=== PATIENT | female | born 1975 | race Caucasian/White ===

== ENCOUNTER 2019-03-13 11:54 | Observation (INO) | payer OTHER ==
[~2019-03-13] VITALS: Ht 152.4 cm; Wt 118.4 kg
[2019-03-13 12:30] VITALS: BP 133/75
[2019-03-13 13:05] LABS: BASOPHILS % (AUTO) 0.4 % (0.0-2.0); EOSINOPHILS % (AUTO) 0.6 % (1.0-6.0); HEMATOCRIT 37.6 % (36-46); HEMOGLOBIN 12.6 g/dL (12.0-16.0); LYMPHOCYTES # (AUTO) 1.6 K/uL (1.0-4.8); LYMPHOCYTES % (AUTO) 17.8 % (22.0-44.0); MEAN CORPUSCULAR HEMOGLOBIN 29.1 pg (26.0-34.0); MEAN CORPUSCULAR HGB CONC 33.4 G/dL (31.0-37.0); MEAN CORPUSCULAR VOLUME 87 fL (80-100); MONOCYTES # (AUTO) 0.5 K/uL (0.1-1.0); MONOCYTES % (AUTO) 6.1 % (2.0-9.0); NEUTROPHILS # (AUTO) 6.7 K/uL (1.8-7.7); NEUTROPHILS % (AUTO) 75.1 % (40.0-70.0); PLATELET COUNT (AUTO) 173 K/uL (150-450); RED BLOOD CELL COUNT(AUTO) 4.32 MIL/uL (4.00-5.20); RED CELL DISTRIBUTION WIDTH 13.5 % (11.5-14.5)
[2019-03-13 13:17] LABS: ANION GAP 9 mmol/L (8-16); CALCIUM, TOTAL 8.3 mg/dL (8.8-10.5); CARBON DIOXIDE 21 mmol/L (22-29); CHLORIDE 104 mmol/L (98-107); CREATININE 0.58 mg/dL (0.60-1.30); GLOMERULAR FILTR. RATE CALC > 60 mL/min (>60); GLUCOSE,RANDOM 90 mg/dL (70-110); POTASSIUM 3.5 mmol/L (3.5-5.1); SODIUM SERUM 134 mmol/L (136-145); UREA NITROGEN, BLOOD 6 mg/dL (7-18)
[2019-03-13 13:23] LABS: ALANINE AMINOTRANSFERASE 16 U/L (12-78); ALBUMIN 2.3 g/dL (3.4-5.0); ALKALINE PHOSPHATASE 87 U/L (46-116); ASPARTATE AMINOTRANSFERASE 14 U/L (15-37); BILIRUBIN,TOTAL 0.2 mg/dL (0.1-1.0); HEMOGLOBIN A1C 5.8 % (4.5-6.2); TOTAL PROTEIN, SERUM 6.7 g/dL (6.4-8.2)
[2019-03-13 13:37] LABS: URIC ACID 3.9 mg/dL (2.6-7.2)
[2019-03-13] MEDS ORDERED: PRENATAL NO.137/IRON/FOLIC ACID TABLET PO ONE (14:45)
[2019-03-13 15:10] LABS: APPEARANCE,URINE CLOUDY (CLEAR); GLUCOSE, URINE (UA) NEGATIVE (NEGATIVE); KETONES,URINE NEGATIVE (NEGATIVE); LEUKOCYTE ESTERASE ,URINE SMALL (NEGATIVE); NITRATE,URINE NEGATIVE (NEGATIVE); OCCULT BLOOD,URINE TRACE (NEGATIVE); PROTEIN,URINE TRACE (NEGATIVE); UROBILINOGEN,URINE 0.2 mg/dL (<=1.0)
[2019-03-13 15:11] LABS: CREATININE,URINE RANDOM 259.8 mg/dL (30.0-125.0); PROTEIN,URINE RANDOM 40 mg/dL (0-11.9)
[2019-03-13 15:12] LABS: BILIRUBIN,URINE PRELIM. POSITIVE (NEGATIVE)
[2019-03-13 15:29] LABS: BACTERIA,URINE Many /HPF (None Seen); RBC,URINE 0-2 /HPF (0-2); SQUAMOUS EPITHELIAL CELL,UR Many /LPF (None Seen)
[2019-03-13 15:30] LABS: YEAST,URINE Rare /HPF (None Seen)
[2019-03-13] MEDS ORDERED: MetFORMIN HCL 850 MG TABLET PO SCH (17:30)
[2019-03-13] MEDS: MetFORMIN HCL 850 MG TABLET PO SCH (18:25)
[2019-03-13] MEDS: NIFEdipine 30 MG ER TABLET PO SCH (18:27)
[2019-03-13] MEDS ORDERED: INSULIN GLARGINE,HUM.REC.ANLOG 100 UNITS/ML SQ SCH ×2 (20:30→21:00)
[2019-03-13 20:33] LABS: GLUCOMETER DEV NAME(LOC) 4S.; GLUCOSE,POINT OF CARE 125 MG/DL (70-110)
[2019-03-14] MEDS ORDERED: LEVOTHYROXINE SODIUM 125 MCG TABLET PO SCH ×2 (06:30)
[2019-03-14 06:57] LABS: GLUCOMETER DEV NAME(LOC) 4S.; GLUCOSE,POINT OF CARE 79 MG/DL (70-110)
[2019-03-14] MEDS: MetFORMIN HCL 850 MG TABLET PO SCH (08:03)
[2019-03-14] MEDS: NIFEdipine 30 MG ER TABLET PO SCH (10:34)
[2019-03-14] MEDS ORDERED: METF-445 PO (11:52)
[2019-03-14] MEDS ORDERED: NIFE30TA91 PO (11:55)
[2019-03-14 13:18] LABS: GLUCOMETER DEV NAME(LOC) 4S.; GLUCOSE,POINT OF CARE 132 MG/DL (70-110)
[2019-03-14] MEDS ORDERED: NIFEdipine 30 MG ER TABLET PO ONE ×2 (13:45→15:00)
[2019-03-14 17:34] LABS: COLLECTION TIME,URINE 24 HR; TPROTEIN TIMED,URINE 8 mg/dL; TPROTEIN URINE, 24HRS COLL 240 mg/24Hr (0-165)
[2019-03-14] MEDS ORDERED: INSULIN GLARGINE,HUM.REC.ANLOG 100 UNITS/ML SQ SCH ×2 (20:30→21:00)
== END 2019-03-14 15:15 | disposition left against medical advice (07) ==
LOC: 4S 11:54
PROVIDERS: ADMIT Obstetrics & Gynecology Obstetrics; ATTEND Obstetrics & Gynecology
DX: O16.3 Unspecified maternal hypertension, third trimester (principal); Z3A.35 35 weeks gestation of pregnancy; Z79.899 Other long term (current) drug therapy
CPT/HCPCS: 36415; 76805; 80053; 81001; 81050; 82570; 82962 ×2; 83036; 84156 ×2; 84550; 85025; 87086; 96372; G0378 ×2; J1815

== ENCOUNTER 2019-04-08 18:29 | Inpatient (IN) | payer OTHER ==
[~2019-04-08] VITALS: Ht 154.9 cm; Wt 120.7 kg
[~2019-04-08 18:29] MED LIST: METF-445 PO; NIFE-40 PO
[2019-04-08] MEDS ORDERED: RINGERS SOLUTION,LACTATED 1,000 ML IV PRN (18:50)
[2019-04-08] MEDS ORDERED: OXYTOCIN 30 UNITS/LACT RINGERS 500 ML IV ONE (18:50)
[2019-04-08] MEDS ORDERED: METOCLOPRAMIDE HCL 5 MG/ML 2 ML VIAL IVP PRN (19:00)
[2019-04-08] MEDS ORDERED: LIDOCAINE/PF 1% 30 ML VIAL INJ PRN (19:00)
[2019-04-08] MEDS ORDERED: METHYLERGONOVINE MALEATE 0.2 MG/ML VIAL IM PRN (19:00)
[2019-04-08] MEDS ORDERED: CITRIC ACID/SODIUM CITRATE 30 ML SOLUTION UDCUP PO PRN (19:00)
[2019-04-08 19:21] LABS: BASOPHILS % (AUTO) 0.4 % (0.0-2.0); EOSINOPHILS % (AUTO) 0.6 % (1.0-6.0); HEMOGLOBIN 12.1 g/dL (12.0-16.0); LYMPHOCYTES # (AUTO) 1.6 K/uL (1.0-4.8); LYMPHOCYTES % (AUTO) 17.5 % (22.0-44.0); MEAN CORPUSCULAR HEMOGLOBIN 29.2 pg (26.0-34.0); MEAN CORPUSCULAR HGB CONC 33.8 G/dL (31.0-37.0); MEAN CORPUSCULAR VOLUME 87 fL (80-100); MONOCYTES # (AUTO) 0.5 K/uL (0.1-1.0); NEUTROPHILS # (AUTO) 6.9 K/uL (1.8-7.7); NEUTROPHILS % (AUTO) 75.5 % (40.0-70.0); PLATELET COUNT (AUTO) 175 K/uL (150-450); RED BLOOD CELL COUNT(AUTO) 4.15 MIL/uL (4.00-5.20); RED CELL DISTRIBUTION WIDTH 13.6 % (11.5-14.5)
[2019-04-08] MEDS ORDERED: OXYGEN THERAPY IH SCH (20:00)
[2019-04-08] MEDS ORDERED: DINOPROSTONE 10 MG VAGINAL SUPPOSITORY VG ONE (20:45)
[2019-04-08] MEDS ORDERED: AMPICILLIN SODIUM 2 GM/NS 100 ML IV ONE (20:45)
[2019-04-08] MEDS ORDERED: [UNRECOGNIZED DRUG - OTHER] SQ (21:17)
[2019-04-08] MEDS ORDERED: METH250T3 PO (21:19)
[2019-04-08] MEDS ORDERED: LEVO125T4 PO (21:19)
[2019-04-08 21:20] VITALS: BP 141/85
[2019-04-08 21:44] LABS: GLUCOMETER DEV NAME(LOC) 4S.; GLUCOSE,POINT OF CARE 82 MG/DL (70-110)
[2019-04-08 21:44] LABS: GLUCOMETER DEV NAME(LOC) 4S.; GLUCOSE,POINT OF CARE 79 MG/DL (70-110)
[2019-04-08 22:31] LABS: GLUCOMETER DEV NAME(LOC) 4S.; GLUCOSE,POINT OF CARE 75 MG/DL (70-110)
[2019-04-08] MEDS: FentaNYL CITRATE-PF 100 MCG/2 ML VIAL IVP PRN ×2 (23:09→23:23)
[2019-04-09] MEDS: AMPICILLIN SODIUM 1 GM/NS 50 ML IV SCH ×3 (01:23→09:54)
[2019-04-09 01:42] LABS: GLUCOMETER DEV NAME(LOC) 4S.; GLUCOSE,POINT OF CARE 71 MG/DL (70-110)
[2019-04-09 01:42] LABS: GLUCOMETER DEV NAME(LOC) 4S.; GLUCOSE,POINT OF CARE 71 MG/DL (70-110)
[2019-04-09 01:42] LABS: GLUCOMETER DEV NAME(LOC) 4S.; GLUCOSE,POINT OF CARE 70 MG/DL (70-110)
[2019-04-09] MEDS ORDERED: INFLUENZA VIRUS VACCINE QVS 2019-20 (3YR+)/PF 60 MCG/0.5 ML SYRINGE IM ONE (01:45)
[2019-04-09] MEDS: RINGERS SOLUTION,LACTATED 1,000 ML IV SCH ×3 (03:33→17:45)
[2019-04-09] MEDS: FentaNYL CITRATE-PF 100 MCG/2 ML VIAL IVP PRN ×4 (06:15→10:52)
[2019-04-09 07:20] LABS: GLUCOMETER DEV NAME(LOC) 4S.; GLUCOSE,POINT OF CARE 76 MG/DL (70-110)
[2019-04-09 07:20] LABS: GLUCOMETER DEV NAME(LOC) 4S.; GLUCOSE,POINT OF CARE 72 MG/DL (70-110)
[2019-04-09 07:20] LABS: GLUCOMETER DEV NAME(LOC) 4S.; GLUCOSE,POINT OF CARE 70 MG/DL (70-110)
[2019-04-09 07:20] LABS: GLUCOMETER DEV NAME(LOC) 4S.; GLUCOSE,POINT OF CARE 74 MG/DL (70-110)
[2019-04-09 07:21] LABS: GLUCOMETER DEV NAME(LOC) 4S.; GLUCOSE,POINT OF CARE 79 MG/DL (70-110)
[2019-04-09 07:39] LABS: GLUCOMETER DEV NAME(LOC) 4S.; GLUCOSE,POINT OF CARE 72 MG/DL (70-110)
[2019-04-09] MEDS ORDERED: -PHARMACY NOTE- MISC ONE (08:45)
[2019-04-09 09:03] LABS: GLUCOMETER DEV NAME(LOC) 4S.; GLUCOSE,POINT OF CARE 69 MG/DL (70-110)
[2019-04-09] MEDS ORDERED: OXYTOCIN 30 UNITS/LACT RINGERS 500 ML IV PRN (10:00)
[2019-04-09] MEDS ORDERED: ROPIVACAINE HCL/PF 0.2% 100 ML ED ONE (11:26)
[2019-04-09] MEDS ORDERED: LIDOCAINE 2%/EPI 1:200,000/PF 20 ML VIAL ONE (15:09)
[2019-04-09] MEDS ORDERED: BUPIVACAINE HCL/DEX-WATER/PF 0.75% 2 ML AMP ONE (15:09)
[2019-04-09] MEDS ORDERED: TRANEXAMIC ACID 1,000 MG in DEXTROSE 5%-WATER 50 ML IV ONE (16:00)
[2019-04-09] MEDS ORDERED: GUM MASTIC/STORAX/MSAL/ALCOHOL LIQUID 0.67 ML VIAL TP ONE (16:06)
[2019-04-09] MEDS ORDERED: ACETAMINOPHEN 1000 MG/ISO-OSM 100 ML IV ONE ×2 (16:15→17:47)
[2019-04-09] MEDS ORDERED: FentaNYL CITRATE-PF 100 MCG/2 ML VIAL IVP PRN ×3 (16:15→16:30)
[2019-04-09] MEDS ORDERED: DiphenhydrAMINE HCL 50 MG/ML VIAL IVP PRN ×2 (16:15→16:30)
[2019-04-09] MEDS ORDERED: MEPERIDINE-PF 25 MG/ML VIAL IVP PRN (16:15)
[2019-04-09] MEDS ORDERED: DEXAMETHASONE SOD PHOS 4 MG/ML VIAL IVP PRN (16:15)
[2019-04-09] MEDS ORDERED: NALBUPHINE HCL 10 MG/ML VIAL IVP PRN ×3 (16:15→16:30)
[2019-04-09] MEDS ORDERED: MORPHINE SULFATE 10 MG/ML SYRINGE IVP PRN (16:15)
[2019-04-09] MEDS ORDERED: ONDANSETRON HCL 4 MG/2 ML VIAL IVP PRN ×2 (16:15→16:30)
[2019-04-09] MEDS ORDERED: NALOXONE HCL 0.4 MG/ML VIAL IVP PRN (16:30)
[2019-04-09] MEDS ORDERED: OXYTOCIN 30 UNITS/LACT RINGERS 500 ML IV ONE (18:56)
[2019-04-09] MEDS ORDERED: LANOLIN 7 GM OINTMENT TP PRN (19:00)
[2019-04-09] MEDS ORDERED: OXYGEN THERAPY IH SCH ×2 (20:00)
[2019-04-10] MEDS: RINGERS SOLUTION,LACTATED 1,000 ML IV SCH ×2 (02:44→09:12)
[2019-04-10] MEDS ORDERED: 0.9% SODIUM CHLORIDE 10 ML VIAL IVP ONE (05:46)
[2019-04-10] MEDS ORDERED: MORPHINE SULFATE/PF 0.5 MG/ML 10 ML AMP IVP ONE (05:46)
[2019-04-10] MEDS ORDERED: ONDANSETRON HCL 4 MG/2 ML VIAL IVP ONE (05:46)
[2019-04-10] MEDS ORDERED: OXYTOCIN 10 UNITS/ML VIAL IM ONE (05:46)
[2019-04-10 07:11] LABS: BASOPHILS % (AUTO) 0.4 % (0.0-2.0); EOSINOPHILS % (AUTO) 0.1 % (1.0-6.0); HEMATOCRIT 34.1 % (36-46); HEMOGLOBIN 11.5 g/dL (12.0-16.0); LYMPHOCYTES # (AUTO) 1.5 K/uL (1.0-4.8); LYMPHOCYTES % (AUTO) 15.2 % (22.0-44.0); MEAN CORPUSCULAR HEMOGLOBIN 29.7 pg (26.0-34.0); MEAN CORPUSCULAR HGB CONC 33.7 G/dL (31.0-37.0); MEAN CORPUSCULAR VOLUME 88 fL (80-100); MONOCYTES # (AUTO) 0.7 K/uL (0.1-1.0); MONOCYTES % (AUTO) 7.4 % (2.0-9.0); NEUTROPHILS # (AUTO) 7.7 K/uL (1.8-7.7); NEUTROPHILS % (AUTO) 76.9 % (40.0-70.0); PLATELET COUNT (AUTO)-OB 144 K/uL (150-450); RED BLOOD CELL COUNT(AUTO) 3.87 MIL/uL (4.00-5.20); RED CELL DISTRIBUTION WIDTH 13.9 % (11.5-14.5)
[2019-04-10] MEDS: MORPHINE SULFATE 10 MG/ML SYRINGE IVP PRN ×2 (09:11→12:29)
[2019-04-10] MEDS: LEVOTHYROXINE SODIUM 125 MCG TABLET PO SCH (09:11)
[2019-04-10] MEDS: MAGNESIUM HYDROXIDE SUSPENSION 30 ML UDCUP PO SCH ×2 (09:11→22:36)
[2019-04-10 11:17] LABS: GLUCOMETER DEV NAME(LOC) 4S.; GLUCOSE,POINT OF CARE 152 MG/DL (70-110)
[2019-04-10 13:35] LABS: GLUCOMETER DEV NAME(LOC) 4S.; GLUCOSE,POINT OF CARE 119 MG/DL (70-110)
[2019-04-10] MEDS ORDERED: OxyCODONE HCL/ACETAMINOPHEN 5-325 MG TABLET PO PRN ×2 (17:00)
[2019-04-10 19:05] LABS: GLUCOMETER DEV NAME(LOC) 4S.; GLUCOSE,POINT OF CARE 91 MG/DL (70-110)
[2019-04-10] MEDS: IBUPROFEN 800 MG TABLET PO PRN (22:36)
[2019-04-10 22:54] LABS: GLUCOMETER DEV NAME(LOC) 4S.; GLUCOSE,POINT OF CARE 169 MG/DL (70-110)
[2019-04-11] MEDS: LEVOTHYROXINE SODIUM 125 MCG TABLET PO SCH (06:34)
[2019-04-11] MEDS: IBUPROFEN 800 MG TABLET PO PRN (10:58)
[2019-04-11] MEDS ORDERED: IBUP-2071 PO (11:37)
[2019-04-11 12:11] LABS: GLUCOMETER DEV NAME(LOC) 4S.; GLUCOSE,POINT OF CARE 102 MG/DL (70-110)
[2019-04-11 12:11] LABS: GLUCOMETER DEV NAME(LOC) 4S.; GLUCOSE,POINT OF CARE 78 MG/DL (70-110)
== END 2019-04-11 13:50 | disposition home or self-care (01) | DRG 807 ==
LOC: OBSVTOIN 18:29 → 4S 18:29
PROVIDERS: ADMIT Obstetrics & Gynecology; ATTEND Obstetrics & Gynecology
PROC: 10E0XZZ Delivery of Products of Conception, External Approach (ICD-10-PCS; principal; 2019-04-09)
PROC: 3E0R3BZ Introduction of Anesthetic Agent into Spinal Canal, Percutaneous Approach (ICD-10-PCS; 2019-04-09)
PROC: 00HU33Z Insertion of Infusion Device into Spinal Canal, Percutaneous Approach (ICD-10-PCS; 2019-04-09)
DX: O13.4 Gestational [pregnancy-induced] hypertension without significant proteinuria, complicating childbirth (principal); O99.284 Endocrine, nutritional and metabolic diseases complicating childbirth; E05.90 Thyrotoxicosis, unspecified without thyrotoxic crisis or storm; O99.214 Obesity complicating childbirth; O24.429 Gestational diabetes mellitus in childbirth, unspecified control; Z37.0 Single live birth; Z3A.39 39 weeks gestation of pregnancy
CPT/HCPCS: 74018; 76805; 86850; 86900; 86901; 90686; J0131; J0290; J0690; J2270; J2274; J2405; J2590; J2795; J3010; J3490; J7060; J7120